=== PATIENT | female | born 1960 | race Caucasian/White ===

== ENCOUNTER 2017-09-06 08:50 | Emergency (ER) | payer BC, OTHER ==
[2017-09-06 09:02] VITALS: BP 158/94; PULSE 60; RESP 20; TEMP 97.9; O2SAT 98
[2017-09-06] MEDS ORDERED: IBUPROFEN 600 MG TAB PO ONE (09:15)
[2017-09-06] MEDS ORDERED: DIAZEPAM 5 MG TAB PO ONE (09:16)
--- NOTE | 2017-09-06 09:26 | EDPHY ---
H & P Time Seen by Provider: 09/06/17 08:59 HPI/ROS: This patient fell from countertop height in her bathroom at home onto the cross- bar of a step stool versus or left lateral ribs 3 days prior to arrival. She reports immediate severe pain that has increased steadily over the past 3 days characterized as achy at baseline very sharp with movement or deep breaths. She is taking a shower breast than usual due to the pain. She reports the pain intensity is severe. She had Imogene left from a prior back injury and took a 7.5 mg tab at 3:00 a.m. with minimal improvement is been unable sleep the past 24 hr due to the pain. Her drove her here by private vehicle for further evaluation. ROS: Constitutional: No significant fatigue or other complaints HEENT: No head injuries. Neuro: No numbness or tingling Musculoskeletal: No other neck back or extremity injuries from the fall. Pulmonary: No hemoptysis or significant dyspnea. GI: No nausea vomiting or abdominal pain. Cardiovascular: No lightheadedness. 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 She is a nonsmoker. Occasional alcohol on weekends. No drug use. Smoking Status: Former smoker Physical Exam: General Appearance: Alert, no distress. Eyes: Pupils equal and round no pallor or injection. ENT, Mouth: Mucous membranes moist. Neck: No midline tenderness Respiratory: There are no retractions, lungs are clear to auscultation. She has exquisite tenderness to 6 through 10th rib region posteriorly more than laterally. Gentle anterior sternal compression elicits the same type of pain in the same region. Cardiovascular: Regular rate and rhythm. No murmur gallop rub Gastrointestinal: Abdomen is soft and nontender including no right upper quadrant or left upper quadrant tenderness., no masses, bowel sounds normal. Back: No midline tenderness Neurological: GCS 15 Skin: Warm and dry, no rashes. Extremities are symmetrical, full range of motion. Psychiatric: GCS 15 DIFFERENTIAL DIAGNOSIS: After history and physical exam differential diagnosis was considered for rib fracture, pneumothorax, pulmonary contusion, hemothorax, chest wall contusion, cartilage injury Constitutional: Initial Vital Signs Temperature (C) 36.6 C 09/06/17 08:52 Heart Rate 60 09/06/17 08:52 Respiratory Rate 20 09/06/17 08:52 Blood Pressure 158/94 H 09/06/17 08:52 O2 Sat (%) 98 09/06/17 08:52 O2 Delivery Mode Room Air Allergies/Adverse Reactions: No Known Allergies Allergy (Verified 09/06/17 09:09) Home Medications: Medication Instructions Recorded Hydrocodone/APAP 5/325 [Imogene 1 - 2 tab PO Q4PRN PRN #20 tab 09/06/17 5/325 (*)] Ibuprofen [Motrin (*)] 600 mg PO Q6 PRN #30 tab 09/06/17 Levothyroxine 09/06/17 Lidocaine 5% [Lidoderm 5% Patch 1 ea TD DAILY #10 patch 09/06/17 (*)] Methocarbamol [Robaxin 750 mg (*)] 750 - 1,500 mg PO QID PRN #30 tab 09/06/17 MDM/Departure - MDM Diagnostics: Two view chest x-ray: Negative for rib fracture, pneumothorax or other abnormalities by my interpretation Medications Given: Discontinued Medications Diazepam (Valium) 5 mg PO EDNOW ONE Stop: 09/06/17 09:17 Last Admin: 09/06/17 09:23 Dose: 5 mg Ibuprofen (Motrin) 600 mg PO EDNOW ONE Stop: 09/06/17 09:16 Last Admin: 09/06/17 09:23 Dose: 600 mg ED Course/Re-evaluation: Treated with ibuprofen, Imogene and Valium with partial relief Discussion: Clinically this patient presents with findings consistent with rib fracture or other chest wall injury with no fractures appreciated on her plain films. No pneumothorax or hemothorax. Counseled regarding chest wall injury. Will treat with ibuprofen, methocarbamol lidocaine patch and hydrocodone if needed. She understands the need to come back to emergency department should she have any significant worsening of her symptoms despite the treatment plan. - Depart Disposition: Home, Routine, Self-Care Clinical Impression: Injury of chest wall Qualifiers: Encounter type: initial encounter Qualified Code(s): S29.9XXA - Unspecified injury of thorax, initial encounter Condition: Good Instructions: Rib Fracture (ED) Additional Instructions: Diagnosis: Chest wall injury Plan: Ibuprofen, methocarbamol muscle relaxant, Lidoderm patch and Tylenol or hydrocodone/Tylenol if needed in addition for pain control. No driving, alcohol or work while taking the hydrocodone. Take a deep breath despite the chest pain every 10-15 minutes to prevent the potential secondary complication of chest wall injuries - lung consolidation and pneumonia. Symptoms should gradually improve over the next 7-14 days. Follow up with primary care physician for any ongoing symptoms despite treatment plan Return for any significant worsening despite the treatment plan. Prescriptions: Hydrocodone/APAP 5/325 [Imogene 5/325 (*)] 1 - 2 tab PO Q4PRN PRN #20 tab PRN Reason: Pain Ibuprofen [Motrin (*)] 600 mg PO Q6 PRN #30 tab PRN Reason: Pain Lidocaine 5% [Lidoderm 5% Patch (*)] 1 ea TD DAILY #10 patch Methocarbamol [Robaxin 750 mg (*)] 750 - 1,500 mg PO QID PRN #30 tab PRN Reason: Muscle Spasms Referrals: Armando Seymour DO [Primary Care Provider] - As per Instructions
== END 2017-09-06 09:50 | disposition home or self-care (01) ==
LOC: CED 08:50
DX: S29.9XXA Unspecified injury of thorax, initial encounter (principal); Z87.891 Personal history of nicotine dependence; W18.09XA Striking against other object with subsequent fall, initial encounter; Y92.009 Unspecified place in unspecified non-institutional (private) residence as the place of occurrence of the external cause
CPT/HCPCS: 71046-PO